=== PATIENT | female | born 1990 | race Caucasian/White ===

== ENCOUNTER 2017-11-21 13:41 | Emergency (ER) | payer SELFPAY, MEDICAID ==
[~2017-11-21] VITALS: Ht 170.2 cm; Wt 60.8 kg
--- NOTE | 2017-11-21 14:06 | Emergency Room Report ---
History of Present Illness General Chief Complaint: Medical Clearance Source: Patient Present Illness HPI Patient is a 27-year-old female with one prior presented after increased left lower abdominal pain for approximately 3 days. The patient gradual onset of symptoms. Pain was constant in nature. It did not radiate. Pain is in the left lower abdomen. Patient denies any fever. She denies any dysuria. She reports having no vaginal bleeding. She denies any cramping sensations. She denies movement. The patient states she's had previous ultrasound approximately 2 weeks ago at [place]. The patient is currently incarcerated and is being evaluated for medical clearance. Allergies: Coded Allergies: No Known Allergies (Unverified , 11/21/17) Patient History Past Medical History: see triage record Last Menstrual Period: NA Now: Yes - 4 months Reviewed Nursing Documentation: PMH: Agreed; PSxH: Agreed Nursing Documentation-PMH Past Medical History: No Stated History Review of Systems All Other Systems: negative except mentioned in HPI Physical Exam Vital Signs Date Time Temp Pulse Resp B/P (MAP) Pulse Ox O2 Delivery O2 Flow Rate FiO2 11/21/17 13:45 98.1 115 16 102/70 96 Room Air 98.1 General Appearance: well appearing, no apparent distress, alert, GCS 15, non- toxic Head: normocephalic, atraumatic ENT: hearing grossly normal, normal voice Neck: full range of motion, supple Respiratory: no respiratory distress, speaking full sentences Gastrointestinal: normal inspection, normal bowel sounds, non tender, soft Musculoskeletal: normal inspection, no calf tenderness Neurologic: normal inspection, alert, oriented x3, responsive, interventional sale consultant III-XII nml as tested, normal gait Psychiatric: mood/affect normal Skin: no rash Medical Decision Making Diagnostic Impression: Primary Impression: Intrauterine ER Course Patient presented for abdominal pain during . Different differential diagnosis included was not limited to demise, intrauterine , ruptured ovarian cyst, abruption among others. Patient has a benign exam and does not appear to require any further imaging or laboratory testing at this time. Bedside ultrasound was performed which showed a viable fetus with heart tones approximately 145. The fetus shows good movement. A urinalysis was ordered.The patient is medically cleared for incarceration. The patient was to return if she began having any bleeding or severe cramping or other concerns. Labs Test 11/21/17 13:57 Urine Color Pale yellow Urine Appearance Slightly cloudy Urine pH 6 (4.5-8.0) Urine Specific Kinder 1.020 (1.005-1.035) Urine Protein 1+ (NEGATIVE) Urine Glucose (UA) Negative (NEGATIVE) Urine Ketones Negative (NEGATIVE) Urine Occult Blood Negative (NEGATIVE) Urine Nitrite Negative (NEGATIVE) Urine Bilirubin Negative (NEGATIVE) Urine Urobilinogen Normal MG/DL (0.0-1.0) Urine Leukocyte Esterase 2+ (NEGATIVE) Urine RBC 0-2 /HPF (0 - 2) Urine WBC 2-4 /HPF (0 - 2) Urine Squamous Epithelial Cells Many /LPF (NONE/OCC) Urine Bacteria Few /HPF (NONE) Last Vital Signs Date Time Temp Pulse Resp B/P (MAP) Pulse Ox O2 Delivery O2 Flow Rate FiO2 11/21/17 13:45 98.1 115 16 102/70 96 Room Air 98.1 Status: improved Disposition: HOME, SELF-CARE Condition: Stable Patient Instructions: Abdominal Pain During Dennys Whaley MD Nov 21, 2017 14:06
[2017-11-21 14:09] LABS: APPEARANCE,URINE SLIGHTLY CLOUDY; BILIRUBIN, URINE NEGATIVE (NEGATIVE); COLOR,URINE PALE YELLOW; GLUCOSE, URINE (UA) NEGATIVE (NEGATIVE); KETONES,URINE NEGATIVE (NEGATIVE); LEUKOCYTE ESTERASE ,URINE 2+ (NEGATIVE); NITRITE,URINE NEGATIVE (NEGATIVE); PH,URINE 6 (4.5-8.0); PROTEIN,URINE 1+ (NEGATIVE); UROBILINOGEN,URINE NORMAL MG/DL (0.0-1.0)
[2017-11-21 14:30] VITALS: BP 102/70
== END 2017-11-21 14:28 | disposition home or self-care (01) ==
LOC: EMR 14:28
DX: O26.90 Pregnancy related conditions, unspecified, unspecified trimester (principal); Z3A.00 Weeks of gestation of pregnancy not specified
CPT/HCPCS: 81003; 99282